=== PATIENT | male | born 1990 | race Caucasian/White ===

== ENCOUNTER 2019-11-04 12:12 | Emergency (ER) | payer OTHER ==
[~2019-11-04] VITALS: Ht 188 cm; Wt 80.0 kg
[2019-11-04] MEDS ORDERED: ONDANSETRON HCL 4MG/2ML INJ IV STA (13:28)
[2019-11-04] MEDS ORDERED: SODIUM CHLORIDE 0.9% 1,000 ML IV ONE (13:28)
[2019-11-04] MEDS ORDERED: MORPHINE SULFATE 4 MG/ML CPJ (NOT FOR IM USE) IV STA (13:28)
[2019-11-04 14:27] LABS: HEMATOCRIT. 40.7 % (42.0-52.0); MEAN CORPUSCULAR HEMOGLOBIN 30.3 pg (28.0-32.0); MEAN CORPUSCULAR VOLUME 88.2 fL (80.0-94.0); MEAN PLATELET VOLUME 9.2 fl (7.4-10.4); PLATELET 182 x1000/uL (130-400); RED BLOOD CELL COUNT 4.62 mill/uL (4.7-6.1); RED CELL DISTRIBUTION WIDTH 12.8 % (11.6-14.6)
[2019-11-04 14:31] LABS: CHLORIDE 109 mEq/L (98-107)
[2019-11-04 14:49] LABS: PLATELET ESTIMATE NORMAL
[2019-11-04 16:04] LABS: CLARITY URINE CLEAR (CLEAR); COLOR URINE YELLOW (YELLOW); KETONES URINE 1+ (NEGATIVE); LEUKOCYTE ESTERASE URINE NEGATIVE (NEGATIVE); NITRITE URINE NEGATIVE (NEGATIVE); OCCULT BLOOD URINE NEGATIVE (NEGATIVE); PH URINE >=9.0 (4.5-8.0); PROTEIN URINE NEGATIVE (NEGATIVE); SPECIFIC GRAVITY URINE 1.025 (1.005-1.030); UROBILINOGEN URINE 0.2 E.U./dL (0.2-1.0)
[2019-11-04] MEDS ORDERED: PIPERACILLIN/TAZOBACTAM 3.375GM/50ML PREMIX IV NR (17:45)
[2019-11-04] MEDS ORDERED: MORPHINE SULFATE 4 MG/ML CPJ (NOT FOR IM USE) IV ONE ×2 (17:45)
[2019-11-04] MEDS ORDERED: IOHEXOL-300 100 ML BOTTLE ONE ×2 (20:06→20:07)
[2019-11-04 21:15] VITALS: BP 125/83
== END 2019-11-04 21:36 | disposition short-term general hospital (02) ==
LOC: ER 12:51
DX: K37 Unspecified appendicitis (principal); F17.210 Nicotine dependence, cigarettes, uncomplicated; R11.2 Nausea with vomiting, unspecified
CPT/HCPCS: 36415; 74177; 80053; 81003; 83605; 83690; 85025; 96361; 96365; 96375; 96376; 99285; 99406; J2270; J2405; J2543; J7030; Q9967